=== PATIENT | female | born 1985 | race Hispanic/Latino ===

== ENCOUNTER 2019-06-02 10:35 | Inpatient (IN) | payer MEDICAID, OTHER, SELFPAY ==
[2019-06-02] MEDS ORDERED: Misoprostol 200 MCG TAB PR PRN (11:05)
[2019-06-02] MEDS ORDERED: Promethazine HCl 25 MG/ML VIAL IM PRN (11:05)
[2019-06-02] MEDS ORDERED: Ondansetron PF 4 MG/2 ML Vial IVP PRN (11:05)
[2019-06-02] MEDS ORDERED: Acetaminophen 500 MG TAB PO PRN (11:05)
[2019-06-02] MEDS ORDERED: Calcium Gluc 4.6 MEQ/10 ML (100 MG/ML) SLOW IVP PRN (11:05)
[2019-06-02] MEDS ORDERED: hydrALAZINE 20 MG/ML VIAL SLOW IVP PRN (11:05)
[2019-06-02] MEDS ORDERED: Lidocaine 1% (PF) 30 ML VIAL SC PRN ×2 (11:05→13:38)
[2019-06-02] MEDS ORDERED: Ibuprofen 800 MG TAB PO PRN (11:05)
[2019-06-02 11:18] VITALS: BMI 34.5
[2019-06-02 12:06] LABS: #Eosinphils 0.1 thou/uL (0.0-0.7); #Lymphocytes 1.8 thou/uL (1.20-3.40); #Monocytes 0.6 thou/uL (0.11-0.59); #Neutrophils 8.3 thou/uL (1.40-6.50); %Basophils 0.2 % (0.0-1.0); %Eosinophils 0.7 % (0.0-10.0); %Lymphocytes 16.8 % (21.0-51.0); %Monocytes 5.6 % (0.0-10.0); %Neutrophils 76.8 % (42.0-75.0); Hemoglobin 12.3 g/dL (12.0-16.0); Mean Corpuscular HGB CONC 35.5 g/dL (32.0-36.0); Mean Corpuscular Hemoglobin 30.2 pg (27.0-31.0); Mean Corpuscular Volume 85.1 fL (78.0-98.0); Mean Platelet Volume 8.4 fL (7.4-10.4); Platelet Count 303 thou/uL (130-400); RBC Distribution Width 12.1 % (11.5-14.5); Red Blood Cell (RBC) Count 4.05 mill/uL (4.20-5.40); White Blood Cell (WBC) Count 10.8 thou/uL (4.8-10.8)
--- NOTE | 2019-06-02 12:11 | PDOC.FPROB ---
FMR OB H&P: HPI - History of Present Illness Chief Complaint: preE direct admit from clinic History of Present Illness: 34 yo @39.4wks by 8.3wk [place] presents today from [facility] for direct admission due to new diagnosis of preE without severe features. Denies contractions, LOF, VB, discharge, dysuria, headaches, and endorses mild swelling in her lower extremities. Feels the baby move. She had two elevated bp's on separate occasion at [facility] of systolic in the 140s and was found to have a urine protein/cr ratio of .8 on labs drawn on Wednesday at [facility]. Platelets, cr, and liver enzymes wnl. Primary Care Physician: Art FMR OB H&P: Current - Care : 2 Para: 1001 Gestational age: 39.4 Due date: 06/05 Dating Criteria: 8.3 sono - OB Labs Blood type: A RH: positive Antibody Screen: negative RPR: negative HepBsAg: negative Rubella: immune Gonorrhea: negative Chlamydia: negative 1 hour gtt: 134 GBS: negative H&H: 12.1/34.6 Platelets: 322 Additional labs: hep c nonreactive urine culture negative - Anatomy Survey Anatomy survey: [place] 65% anterior placenta female no abnormalities seen FMR OB H&P: History - Past Medical History PMH: AMA obesity - OB History OB History: 2001 term, 40wks, male, in [facility] - [employer] 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[employer] INSPECTOR History: HSIL/HPV pos HR other - Surgical History Sx History: appendectomy - Social History Social History: denies smoking, alcohol, drug use - Family History Family History: mom-diabetes FMR OB H&P: Medications - Current Home Medications: Medication Instructions Recorded Confirmed Type Vit No.129/Iron/Folic 1 each PO DAILY 06/02/19 06/02/19 History [ One Daily Tablet] Benzocaine-Menthol [Dermoplast 1 applic TOP PRN PRN #1 can 06/04/19 Rx [place]] Docusate Calcium [Surfak] 240 mg PO BID PRN #20 cap 06/04/19 Rx Ferrous Sulfate [Iron] 325 mg PO BID #60 tablet 06/04/19 Rx Ibuprofen [Motrin] 800 mg PO Q8HR PRN #20 tab 06/04/19 Rx Lanolin Ointment [Lansinoh 1 applic TOP PRN PRN #1 tube 06/04/19 Rx Ointment] Allergies/Adverse Reactions: Allergies Allergy/AdvReac Type Severity Reaction Status Date / Time No Known Allergies Allergy Verified 06/02/19 11:19 FMR OB H&P: ROS - Review of Systems General: denies: fever/chills, weight/appetite/sleep changes ENT: denies: nasal congestion, rhinorrhea Cardiovascular: reports: edema. denies: chest pain Respiratory: denies: cough, congestion, shortness of breath Gastrointestinal: denies: abdominal pain, nausea, vomiting Genitourinary (Female): denies: incontinence, dysuria Musculoskeletal: denies: pain, stiffness Neurologic: denies: numbness, syncope, headache Integumentary: denies: itching, rash Breast: denies: lumps, bumps Endocrine: denies: cold intolerance, heat intolerance Hematologic/Lymphatic: denies: prolonged or excessive bleeding Psychological: denies: depression, anxiety FMR OB H&P: Vital Signs - Maternal Vital signs: Vital Signs - First Documented Temp Pulse Resp BP 99.1 F 90 18 126/86 06/02/19 11:05 06/02/19 11:05 06/02/19 11:05 06/02/19 11:05 - Heart Tones Baseline: 125 Variability: moderate Acceleration: present Deceleration: absent Category: category 1 FMR OB H&P: Physical Exam - Physical Exam General: NAD, awake, alert and oriented HEENT: normocephalic and atraumatic, PERRLA, grossly normal vision, grossly normal hearing Neck: no LAD, no JVD General: no respiratory distress Abdomen: soft, gravid Musculoskeletal: normal gait and station Skin: no rash, good tugor, capillary refill <2 seconds Lymphatic: no unusual bruising or bleeding Psychiatric: intact recent and remote memory - Pelvic Exam SVE: Bagley score: 3 Membranes: intact Presentation: vertex Estimated Weight: 7 lbs FMR OB H&P: Results - Labs Lab results: Laboratory Results - last 24 hr 06/02/19 11:47 WBC 10.8 RBC 4.05 L Hgb 12.3 Hct 34.5 L MCV 85.1 MCH 30.2 MCHC 35.5 RDW 12.1 Plt Count 303 MPV 8.4 Neutrophils % 76.8 H Lymphocytes % 16.8 L Monocytes % 5.6 Eosinophils % 0.7 Basophils % 0.2 Neutrophils # 8.3 H Lymphocytes # 1.8 Monocytes # 0.6 H Eosinophils # 0.1 Basophils # 0.0 FMR OB H&P: A/P - Problem List (1) Term Status: Acute Code(s): Z34.90 - ENCNTR FOR SUPRVSN OF NORMAL , UNSP, UNSP TRIMESTER (2) Preeclampsia Status: Acute Code(s): O14.90 - UNSPECIFIED PRE-ECLAMPSIA, UNSPECIFIED TRIMESTER (3) Advanced maternal age (AMA) in Status: Acute Code(s): JKG9039 - (4) Obesity Status: Acute Code(s): E66.9 - OBESITY, UNSPECIFIED Discussion: Date/Time: 06/02/19 1211 34 yo @39.4wks by 8.3 wk sono admitted for mIOL 2/2 preE #term, siup #preE, without severe features #AMA #obesity -Admite to L&D -[place] 3, cytotec for cervical ripening; recheck 3-4 hours -recheck cbc, cmp -urine protein/cr .8 in clinic -two elevated bps in clinic in the 140s systolic range, not severe -120s systolic here so far, will monitor closely -will monitor for s/s of severe features, no indication for magnesium at this time -will monitor pressures closely -pt desires epidural, will consult anesthesia when appropriate Chidi Cordova MD, PGY-3 Addendum - Attending - Attending Attestation Date/Time: 06/05/19 0044 I personally evaluated the patient and discussed the management with Dr. Cordova on 06/02/2019 I agree with the History, Examination, Assessment and Plan documented above with any addition or exceptions noted below - 34 yo @39.4 weeks sent from [facility] due to elevated BP. Patient seen on Wednesday with elevated BP that normalized on repeat. Pre-E labs drawn and pt instructed to follow-up from BP check on Wednesday. Today had elevated BP x 2 readings and labs showed urine Pr/Cr= 0.88; normal CBC and CMP. Denies any VUONG, vision changes, RUQ pain. (+) FM. Afebrile BP 120-140/80-90 Exam as per resident. A/P: 1) IUP@39.4 weeks with pre- eclampsia without severe features - Admit to L&D for induction. Plan for cytotec due to unfavorable cervix, Categoty 1 FHTs. Monitor I/Os and BPs.
[2019-06-02 12:42] LABS: ALT (SGPT) 14 U/L (8-55); AST (SGOT) 15 U/L (5-34); Albumin 3.4 g/dL (3.5-5.0); Alkaline Phosphatase 228 U/L (40-110); Anion Gap 12 mmol/L (10-20); BUN (Urea Nitrogen) 11 mg/dL (7.0-18.7); Bilirubin, Total 0.2 mg/dL (0.2-1.2); Calc. Creatinine Clearance 156 mL/min (70-130); Calcium 9.1 mg/dL (7.8-10.44); Carbon Dioxide 19 mmol/L (22-29); Chloride 110 mmol/L (98-107); Estimated GFR-MDRD Greater than 90; Globulin 2.9 g/dL (2.4-3.5); Glucose 77 mg/dL (70-105); Potassium 4.2 mmol/L (3.5-5.1); Protein, Total 6.3 g/dL (6.0-8.3); Sodium 137 mmol/L (136-145)
[2019-06-02 12:45] LABS: Syphilis Antibody Nonreactive (Nonreactive); Syphilis Antibody Index 0.03 S/CO (<1.00 Non-Reactive)
[2019-06-02 12:47] LABS: HBSAg Index 0.15 S/CO (0-0.99); Hep B Surf Ag Non-Reactive S/CO (NonReactive)
[2019-06-02] MEDS ORDERED: NS / Oxytocin 40 units/1000ml 1,000 ML IV PRN (13:38)
[2019-06-02] MEDS ORDERED: Misoprostol 100 MCG TAB VAG SCH (13:45)
[2019-06-02] MEDS: Lactated Ringer's 1,000 ML IV SCH ×2 (13:58→23:56)
[2019-06-02] MEDS ORDERED: NS w/ Oxytocin 10 units 500 ML IV SCH (16:45)
--- NOTE | 2019-06-02 16:50 | PDOC.LDPN ---
Labor & Delivery Progress Note - Subjective Subjective: comfortable (34 yo @39.3wks admitted for mIOL 2/2 preE, without severe features.) - Objective Vital signs reviewed and normal: yes General: NAD, resting, breathing through contractions Dilation: 3 Effacement: 50% Station: -2 FHT: category 1 [place] contractions every: 1-2 - Assessment (1) Term Code(s): Z34.90 - ENCNTR FOR SUPRVSN OF NORMAL , UNSP, UNSP TRIMESTER Current Visit: Yes Status: Acute (2) Preeclampsia Code(s): O14.90 - UNSPECIFIED PRE-ECLAMPSIA, UNSPECIFIED TRIMESTER Current Visit: Yes Status: Acute (3) Advanced maternal age (AMA) in Code(s): [id number] - Current Visit: Yes Status: Acute (4) Obesity Code(s): E66.9 - OBESITY, UNSPECIFIED Current Visit: Yes Status: Acute -: A/P: #Siup- #mIOL for preE- #AMA- #Obesity- On recheck stone of 7-8. Cat 1 strip currently. Donovan 1-2. Will plan to start pitocin at 1800, four hours after cytotec was placed, pending strip. Plan to recheck cervix at 2000, ~ 2 hours after starting pitocin. Pt agreeable to plan. Desires epidural. Consulted anesthesia. Nurse to call once pt desires. Chidi Cordova MD, PGY-3
[2019-06-02] MEDS: NS w/ Oxytocin 10 units 500 ML IV SCH (18:12)
[2019-06-02] MEDS: Misoprostol 100 MCG TAB VAG SCH ×2 (19:16→23:05)
--- NOTE | 2019-06-02 20:25 | PDOC.LDPN ---
Labor & Delivery Progress Note - Subjective Subjective: comfortable - Objective Vital signs reviewed and normal: yes General: NAD, resting Uterine fundus: non tender Dilation: 3 Effacement: 50% Station: -3 FHT: category 1 [place] contractions every: 2-3M Plan: continue plan of care -: 1. Induction of Labor for Pre-Eclampsia -Maternal vital signs WNL - no elevated BP, severe features or neurologic defecits - vital signs - Cat 1 w/o decelerations -Pitocin @ 6 ml/hr, continue to titrate -Cervical Check: /-3 -SVE Q2H -LR @ 125 ml/hr 2. Single Intrauterine -See #1 3. Adavanced Maternal Age -See #1 4. Obesity -See #1 Dispo: Maternal and vital signs currently WNL w/ contractions Q2-3M. No evidence severe neurologic features. Patient desires epidural - notify Anesthesia when patient desires. ATTENDING ADDENDUM: case discussed with resident. Agree with plan and documentation.
--- NOTE | 2019-06-02 22:10 | PDOC.LDPN ---
Addendum entered and electronically signed by Gordon Walker MD 06/02/19 22:18 : Pitocin @ 8 ml/hr* Original Note: Labor & Delivery Progress Note - Subjective Subjective: comfortable, no concerns - Objective Vital signs reviewed and normal: yes General: NAD, resting Uterine fundus: non tender Dilation: 4 Effacement: 50% Station: -3 FHT: category 1 [place] contractions every: 2M Plan: continue plan of care, pitocin for augmentation -: 1. Induction of Labor for Pre-Eclampsia -Maternal vital signs WNL - no elevated BP, severe features or neurologic defecits - vital signs - Cat 1 w/o decelerations -Pitocin @ 18 ml/hr, continue to titrate -Cervical Check: /-3 -SVE Q2H -LR @ 125 ml/hr 2. Single Intrauterine -See #1 3. Adavanced Maternal Age -See #1 4. Obesity -See #1 Dispo: Maternal and vital signs currently WNL w/ contractions Q2M. No evidence severe neurologic features. Patient still desires epidural - notify Anesthesia when patient desires. ATTENDING ADDENDUM: case discussed with resident. Agree with plan and documentation.
[2019-06-03] MEDS: Butorphanol Tartrate 1 MG/ML VIAL SLOW IVP PRN ×3 (00:15→03:59)
--- NOTE | 2019-06-03 00:45 | PDOC.LDPN ---
Labor & Delivery Progress Note - Subjective Subjective: comfortable, painful contractions, vaginal pressure, no concerns - Objective Vital signs reviewed and normal: yes General: NAD, breathing through contractions Uterine fundus: palpable contractions Dilation: 5 Effacement: 75% Station: -1 FHT: category 1 [place] contractions every: 2M Plan: continue plan of care, pitocin for augmentation -: 1. Induction of Labor for Pre-Eclampsia -Maternal vital signs WNL - 1 SBP of 140, all other BP readings WNL, no severe features or neurologic defecits - vital signs - Cat 1 w/o decelerations -Pitocin @ 10 ml/hr, continue to titrate -Cervical Check: 5/75/-1 -SVE Q2H -LR @ 125 ml/hr 2. Single Intrauterine -See #1 3. Adavanced Maternal Age -See #1 4. Obesity -See #1 Dispo: Maternal and vital signs currently WNL w/ contractions Q2M. No evidence severe neurologic features. Stadol 1 mg for pain, but patient still desires epidural - notify Anesthesia when patient desires. ATTENDING ADDENDUM: case discussed with resident. Agree with plan and documentation.
[2019-06-03] MEDS ORDERED: NS / Oxytocin 40 units/1000ml 1,000 ML ONE (02:13)
[2019-06-03] MEDS ORDERED: Lidocaine 1% (PF) 30 ML VIAL ONE (02:13)
[2019-06-03] MEDS: Misoprostol 100 MCG TAB VAG SCH ×7 (02:19→20:36)
--- NOTE | 2019-06-03 02:20 | PDOC.LDPN ---
Labor & Delivery Progress Note - Subjective Subjective: comfortable, painful contractions, vaginal pressure, no concerns - Objective Vital signs reviewed and normal: yes General: NAD, breathing through contractions Uterine fundus: palpable contractions Dilation: 6 Effacement: 75% Station: -1 FHT: category 1 [place] contractions every: 2M Plan: continue plan of care, pitocin for augmentation -: 1. Induction of Labor for Pre-Eclampsia -Maternal vital signs WNL - 1 SBP of 130, all other BP readings WNL, no severe features or neurologic defecits - vital signs - Cat 1 w/o decelerations, recent Sleep Cycle -Pitocin @ 12 ml/hr, continue to titrate -Cervical Check: /-1 -SVE Q2H -LR @ 125 ml/hr 2. Single Intrauterine -See #1 3. Adavanced Maternal Age -See #1 4. Obesity -See #1 Dispo: Maternal and vital signs currently WNL w/ contractions Q2M. No evidence of severe neurologic features. Notify Anesthesia when patient desires epidural. ATTENDING ADDENDUM: case discussed with resident. Agree with plan and documentation.
--- NOTE | 2019-06-03 04:27 | PDOC.LDPN ---
Labor & Delivery Progress Note - Subjective Subjective: painful contractions, vaginal pressure, loss of fluid, other ( Residents were notified at ~0405 that SROM occurred at ~0315) - Objective Vital signs reviewed and normal: yes General: breathing through contractions Uterine fundus: non tender Effacement: 75% Station: -1 FHT: category 2 [place] contractions every: 2M Other exam findings: Scant bloodflow w/ < 25 ml of clots collected. No identifiable source. Resuscitative measures: maternal IV fluids (LR 500 ml) Plan: continue plan of care, pitocin for augmentation, resuscitative measures -: 1. Induction of Labor for Pre-Eclampsia -Maternal vital signs WNL - no severe features or neurologic defecits - vital signs - Cat 2 due to reduced variability - no late or variable decelerations -s/p 2nd dose of Stadol 1 mg -Pitocin @ 12 ml/hr, continue to titrate -Cervical Check: /-1 -No source of bleeding identified using gentle bimanual examination -Continu SVE Q2H -s/p LR 500 ml bolus -LR @ 125 ml/hr 2. Single Intrauterine -See #1 3. Advanced Maternal Age -See #1 4. Obesity -See #1 Dispo: Maternal and vital signs currently WNL w/ contractions Q2M. No evidence of severe neurologic features. Unsure of source of bleeding - possibly cervical. Patient no longer desires epidural. ATTENDING ADDENDUM: case discussed with resident. Agree with plan and documentation. Patient received stadol at approximately 0000, 0200, and 0400. Patient informed no further dosing of stadol can be given due to presumed close proximity to delivery. At time of my attestation (06/03/19 0530) patient has a category 2 tracing due to minimal variability. No decelerations noted. FHT is overall reassuring. Pitocin has been stopped due to maternal discomfort. Patient's SVE is /-1. SROM at approx 0400. Will allow mom and to rest for 30-60 min before resuming augmentation.
[2019-06-03] MEDS: Lactated Ringer's 1,000 ML IV SCH (04:57)
--- NOTE | 2019-06-03 05:36 | PDOC.LDPN ---
Labor & Delivery Progress Note - Subjective Subjective: painful contractions - Objective Vital signs reviewed and normal: yes General: breathing through contractions Dilation: 8-9 Effacement: 90% Station: -2 FHT: category 2, early decelerations, late decelerations, absent or minimal variables [place] contractions every: 2-3 - Assessment (1) Term Code(s): Z34.90 - ENCNTR FOR SUPRVSN OF NORMAL , UNSP, UNSP TRIMESTER Current Visit: Yes Status: Acute (2) Preeclampsia Code(s): O14.90 - UNSPECIFIED PRE-ECLAMPSIA, UNSPECIFIED TRIMESTER Current Visit: Yes Status: Acute (3) Advanced maternal age (AMA) in Code(s): [id number] - Current Visit: Yes Status: Acute (4) Obesity Code(s): E66.9 - OBESITY, UNSPECIFIED Current Visit: Yes Status: Acute Plan: continue plan of care (pt desires epidural) -: ATTENDING ADDENDUM: Case discussed with resident, agree with documentation and plan.
[2019-06-03] MEDS: NS / Oxytocin 40 units/1000ml 1,000 ML IV PRN ×2 (07:00→08:40)
--- NOTE | 2019-06-03 07:38 | PDOC.OPDEL ---
OB Operative/Delivery Note Delivery Dr/Surgeon: Aaron Cordova Assist: Suzie Pre-Delivery Diagnosis: medically indicated induction (preE) Anesthesia: spinal - Findings A Sex: female - 1 min: 8 - 5 min: 9 - Additional Findings/Plan Placenta delivered: spontaneous Repaired Obstetrical Laceration: 2nd degree Estimated blood loss: qbl:135ml Compilations/Other Findings: Attending:Suzie Residents: Art Walker Procedure: Spontaneous Vaginal Delivery Anesthesia: 15 ml 1% Lidocaine QBL:135 ml Pre-op Diagnosis: 1. Term intrauterine in labor 2. Preeclampsia without severe features 3. AMA 4. Obesity Post-op Diagnosis: 1. Term intrauterine , delivered 2. Preeclampsia without severe features 3. AMA 4. Obesity Indications: A 34 y/o female presents to L&D for induction due to preE without severe features. Delivery Note: This is34 y/o female @ 39.4wks who delivered a viable F infant at 0659. Following an uneventful antepartum course, a vigorous female was delivered over an intact perineum in the occipitoanterior position. Anterior Shoulder and then remainder of the body delivered. No nuchal cord. The head was held down and mouth and nares were bulb suctioned. Cord clamped (after delayed cord clamping) and cut and cord blood collected. Placenta delivered intact (in the [place] presentation) with a 3 vessel cord noted. Fundal massage was performed and the fundus was firm. The cervix and vagina were inspected and a second degree laceration noted, which was repaired with a 3-0 vicryl suture in the usual fashion with good approximation and hemostasis after a local anesthetic of 15ml was injected. went to nursery in good condition for routine care. Apgars were 8/9 at 1 & 5 minutes, respectively. Patient tolerated delivery well and went to after routine recovery/ care. Post delivery plan: routine recovery Addendum - Attending - Attending Attestation Date/Time: 06/03/19 0859 I personally evaluated the patient and discussed the management with Drs. Cordova and Aaron I was present for the entire delivery and agree with the documentation above. In summary, patient is a 34 yo at 39.5 wk who was sent from [facility] for induction due to pre-eclampsia w/o severe features after her spot urine prot/cr ratio outpatient was found to be 0.88 and she was noted to have 2 mild range BP in clinic in the 140s systolic. She received 1 dose of cytotec and had pitocin augmentation for approximately 13 hours prior to delivery. She only had BP >140/ 90 which occurred approximately 30 min before delivery. was accomplished without difficulty with normal blood loss. A small 2nd degree laceration occurred primarily affecting the perineal skin and was easily repaired with a 3- 0 vicryl stitch in the usual fashion. Patient tolerated the delivery well. Will monitor on L&D to insure BP return to normal range. If BP continues to be elevated, will initiate IV magnesium therapy for [address] in LICU.
[2019-06-03] MEDS ORDERED: Benzocaine-Menthol 82.5 ML CAN TOP PRN (07:41)
[2019-06-03] MEDS ORDERED: Milk Of Magnesia 30 ML UDCUP PO PRN (07:41)
[2019-06-03] MEDS ORDERED: Misoprostol 200 MCG TAB VAG PRN (07:41)
[2019-06-03] MEDS ORDERED: Acetaminophen/Codeine 30-300mg Tablet PO PRN (07:41)
[2019-06-03] MEDS ORDERED: Bisacodyl 10 MG SUPP PR PRN (07:41)
[2019-06-03] MEDS ORDERED: Lanolin Ointment 7 GM TUBE TOP PRN (07:41)
[2019-06-03] MEDS ORDERED: Methylergonovine 0.2 MG/ML VIAL IM PRN (07:41)
[2019-06-03] MEDS ORDERED: Preparation H Ointment 28 GM TUBE PR PRN (07:41)
[2019-06-03] MEDS ORDERED: diphenhydrAMINE 25 MG CAP PO PRN (07:41)
[2019-06-03] MEDS: Prenatal Vitamin 1 TAB PO SCH (10:54)
[2019-06-03] MEDS: Docusate Calcium (SURFAK) 240 MG CAP PO SCH ×2 (10:54→21:13)
[2019-06-03] MEDS: Ibuprofen 800 MG TAB PO SCH ×2 (13:32→21:13)
[2019-06-03] MEDS: NS w/ Oxytocin 10 units 500 ML IV SCH (17:17)
[2019-06-04] MEDS: Ibuprofen 800 MG TAB PO SCH ×2 (04:59→13:29)
[2019-06-04 06:53] LABS: #Eosinphils 0.1 thou/uL (0.0-0.7); #Monocytes 0.8 thou/uL (0.11-0.59); #Neutrophils 10.2 thou/uL (1.40-6.50); %Basophils 0.2 % (0.0-1.0); %Eosinophils 0.6 % (0.0-10.0); %Lymphocytes 15.1 % (21.0-51.0); %Neutrophils 78.1 % (42.0-75.0); Hemoglobin 9.5 g/dL (12.0-16.0); Mean Corpuscular Hemoglobin 30.3 pg (27.0-31.0); Mean Corpuscular Volume 86.7 fL (78.0-98.0); Mean Platelet Volume 8.1 fL (7.4-10.4); Platelet Count 222 thou/uL (130-400); RBC Distribution Width 12.4 % (11.5-14.5); Red Blood Cell (RBC) Count 3.14 mill/uL (4.20-5.40); White Blood Cell (WBC) Count 13.1 thou/uL (4.8-10.8)
[2019-06-04] MEDS ORDERED: Adacel (T-DAP) 0.5 ML SYRINGE IM ONE (07:41)
--- NOTE | 2019-06-04 07:51 | PDOC.PP ---
Post Progress Note Post Day #: 1 Subjective: 34 yo s/p @39.5wks on 06/03 @ 0659 to a TESSIEA female. Doing well. No complaints. Wants to go home. PO intake tolerated: yes Flatus: yes Ambulation: yes Vital Signs (12 hours) Temp Pulse Resp BP Pulse Ox 06/04/19 05:00 98.1 F 88 16 113/71 06/04/19 00:20 98.3 F 86 16 100/55 L 06/03/19 21:10 98.3 F 89 16 120/66 96 Weight Weight 80.286 kg - Physical Examination General: NAD Cardiovascular: no m/r/g, RRR Respiratory: clear to auscultation bilaterally, non-labored breathing Abdominal: + bowel sounds, lochia Fundus firm & at: -2 Neurological: no gross focal deficits Psychiatric: A&Ox3, normal affect Result Diagrams: 06/04/19 06:41 06/02/19 11:47 Additional Labs: Post Labs Blood Type A POSITIVE 06/02/19 12:22 Hep Bs Antigen Non-Reactive S/CO (NonReactive) 06/02/19 11:47 (1) Term Code(s): Z34.90 - ENCNTR FOR SUPRVSN OF NORMAL , UNSP, UNSP TRIMESTER Status: Acute (2) Preeclampsia Code(s): O14.90 - UNSPECIFIED PRE-ECLAMPSIA, UNSPECIFIED TRIMESTER Status: Acute (3) Advanced maternal age (AMA) in Code(s): [id number] - Status: Acute (4) Obesity Code(s): E66.9 - OBESITY, UNSPECIFIED Status: Acute - Assessment/Plan 34 yo s/p on 06/03 @ 0659 to a NAVJ[facility] f. PPD1 #sIUP, delivered #PreE without severe features #Obesity #AMA -Continue routine care. Ibuprofen prn pain. BP's have all been wnl since delivery. Prior to, two in the 140s and one in the 150s, otherwise, wnl. Pr/Cr .3 -Okay to dc today pending baby kylie Cordova MD, PGY-3 Addendum - Attending - Attending Attestation Date/Time: 06/04/19 1336 I personally evaluated the patient and discussed the management with Dr. Cordova I agree with the History, Examination, Assessment and Plan documented above with any addition or exceptions noted below. BP WNL since delivery. Prot/Cr ratio at 0.3 down from 0.8 prior to delivery. H& H down on repeat. Start PO iron. D/C today. F/u 1 week at C for BP monitoring. Severe sx and RTC precautions discussed with patient.
[2019-06-04] MEDS: Prenatal Vitamin 1 TAB PO SCH (10:14)
[2019-06-04] MEDS: Docusate Calcium (SURFAK) 240 MG CAP PO SCH (10:14)
[2019-06-04 13:20] VITALS: BP 136/78; TEMP 98.3
== END 2019-06-04 14:40 | disposition home or self-care (01) | DRG 807 ==
LOC: L&D/OP 10:35 → L&D 13:27 → 3SW 06-03 10:47
PROVIDERS: ADMIT Family Medicine; ATTEND Family Medicine
PROC: 10E0XZZ Delivery of Products of Conception, External Approach (ICD-10-PCS; principal; 2019-06-02)
PROC: 0KQM0ZZ Repair Perineum Muscle, Open Approach (ICD-10-PCS; 2019-06-02)
PROC: 3E0P7VZ Introduction of Hormone into Female Reproductive, Via Natural or Artificial Opening (ICD-10-PCS; 2019-06-02)
PROC: 3E033VJ Introduction of Other Hormone into Peripheral Vein, Percutaneous Approach (ICD-10-PCS; 2019-06-02)
DX: O14.04 Mild to moderate pre-eclampsia, complicating childbirth (principal); Z37.0 Single live birth; O99.214 Obesity complicating childbirth; E66.9 Obesity, unspecified; O70.1 Second degree perineal laceration during delivery; Z3A.39 39 weeks gestation of pregnancy
CPT/HCPCS: 36415; 80053; 81003; 82570; 85025; 86780; 86850; 86900; 86901; 87340; J0595; J2001; J2405; J2590